=== PATIENT | female | born 2000 | race Caucasian/White ===

== ENCOUNTER → 2020-12-15 14:59 | Outpatient (CLI) | payer BC, SELFPAY ==
[2020-12-19 03:06] LABS: Chlamydia By Nucleic Acid AMP Negative (Negative)
[2020-12-19 09:20] LABS: Gonococcus By Nucleic Acid AMP Negative (Negative)
[2020-12-20 12:20] LABS: HPV Reflexed? NOT INDICATED
== END ==
PROVIDERS: Visit Provider Obstetrics & Gynecology
DX: Z12.4 Encounter for screening for malignant neoplasm of cervix (principal); Z11.3 Encounter for screening for infections with a predominantly sexual mode of transmission
CPT/HCPCS: 87491; 87591; 88175; G0145